=== PATIENT | male | born 2005 | race Hispanic/Latino ===

== ENCOUNTER 2025-08-16 00:35 | Emergency (ER) | payer OTHER, SELFPAY ==
[2025-08-16 00:36] VITALS: BP 177/93
[2025-08-16 01:38] LABS: Hematocrit 43.4 % (39.0-52.0); Hemoglobin 13.9 g/dL (13.0-18.0); Mean Corp Hgb Conc. 32.0 g/dL (33.0-37.0); Mean Corpuscular Volume 83.1 fL (80.0-94.0); Nucleated Red Blood Cells % 0 % (-); Platelet Count 233 10^3/uL (130-400); Red Cell Dist. Width 13.0 % (11.5-14.5)
[2025-08-16 01:48] LABS: ALT (SGPT) 22 U/L (0-50); AST (SGOT) 23 U/L (17-59); Albumin 4.5 g/dl (3.5-5.0); Alkaline Phosphatase 111 U/L (38-126); Blood Urea Nitrogen 15 mg/dl (9-20); Calcium 9.1 mg/dl (8.4-10.2); Carbon Dioxide 25 mmol/L (22-30); Chloride 102 mmol/L (98-107); Glucose 111 mg/dl (70-99); Potassium 3.6 mmol/L (3.5-5.1); Sodium 136 mmol/L (135-145); Total Protein 7.6 g/dl (6.3-8.2); eGFR > 60.00
[2025-08-16] MEDS: TORADOL 30 MG IV (02:28)
--- NOTE | 2025-08-16 02:40 | ED.GENMED ---
History of Present Illness
General
Chief Complaint: Chest Pain
Source: patient
Exam Limitations: none
Time Seen by Provider: 08/16/25 01:35
Nursing documentation reviewed up to this point in time: agreed with
History of Present Illness
History of Present Illness:
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
nondrinker non-smoker
Past History
Past History
ED Past Medical History: None
ED Past Surgical History: None
Social History
Tobacco: Non-smoker
Alcohol: None
Drug: None
Personal: Single
Living: with family
Employment: Employed
Family History
Family History: Negative CAD or Sudden
Review of Systems
Review of Systems
All Other Systems: Not applicable
Phy Exam
Physical Exam
Physical Exam:
Physical Exam
General: no apparent distress, not acutely ill
Neck: No jaundice
Heart: s1/s2 regular rate and rhythm, no murmur. equal radial pulses.
Lungs: no acute respiratory distress. clear bilaterally
Abdomen: Nontender
Neuro: alert and oriented. no focal neurological deficits
Skin: no rash
Psychiatric: well kept. interactive and cooperative
Extremities: no edema. no calf tenderness
Scores
Heart Score for Chest Pain Patients
STEMI patient?: No
History: Slightly or Non-Suspicious
ECG: Normal
Age: </= 45 years
Risk Factors: No Risk Factors
Troponin: </= Normal Limit
Heart Score for Chest Pain Patients: 0
Heart Score Risk: 2.5% MACE over next 6 weeks
Course
Orders/Labs/Results
Orders:
Orders
08/16/25 00:38
EKG [Electrocardiogram (*1)] Urgent
Reason for Study: Chest Pain
EKG- Treatment ONCE
08/16/25 01:24
Cardiac Monitoring- Treatment ONCE
IV Insert/Care/Rem.- Treatment PRN
O2 Therapy [RESP] Urgent
Titrate/Wean O2 to maintain O2 sat greater than (%): 90
Special Instructions: Maintain sats >/=90%
Pulse Ox/spot Check [RESP] Urgent
Quantity: 1
Special Instructions: ON ROOM AIR
08/16/25 01:26
Complete Blood Count/With Diff Urgent
Comprehensive Metabolic Panel Urgent
08/16/25 02:02
Ketorolac [Toradol] 30 mg IV NOW STA
08/16/25 02:03
CR Chest - 2 Views Urgent
Comment:
Reason For Exam: cp
08/16/25 02:31
Troponin I Urgent
Abnormal Lab Results
08/16/25
01:26
MCH 26.6 L pg
(27.0-31.0)
MCHC 32.0 L g/dL
(33.0-37.0)
Absolute Lymphs (auto) 3.6 H 10^3/uL
(1.2-3.4)
Absolute Monos (auto) 0.9 H 10^3/uL
(0.1-0.6)
Eosinophils % 6.2 H %
(0-6)
Glucose 111 H mg/dl
(70-99)
08/16/25 01:26
08/16/25 01:26
Vital Signs
Initial and Last Documented VS:
Initial Vital Signs
Temp Pulse Resp BP Pulse Ox
97.8 F 94 20 177/93 99
08/16/25 00:36 08/16/25 00:36 08/16/25 00:36 08/16/25 00:36 08/16/25 00:36
Last Documented Vital Signs
Temp Pulse Resp BP Pulse Ox
97.8 F 94 20 177/93 99
08/16/25 00:36 08/16/25 00:36 08/16/25 00:36 08/16/25 00:36 08/16/25 02:41
MDM/Problems Addressed
Differential Diagnosis Includes:
GERD palpitations, ACS less likely ME less likely PE unlikely pneumothorax unlikely by history of
MDM/Problems Addressed:
Chest pain palpitation
*Pulse Oximetry
SaO2: 99
Oxygen Mode of Delivery: Room air
Patient hypoxic: no
*Critical Care Note
Total Time (30-74mins, 75-104mins- exclusive of procedures): Not Applicable
ED Attending Note
-
Portions of this chart may have been created with voice recognition software.� Occasional wrong word or��sound alike� substitutions may have occurred due to the inherent limitations of voice recognition software.
Discharge Plan
Departure
Patient Disposition: Home (Routine Discharge)
Date of Disposition: 08/16/25
Time of Disposition: 03:30
Patient with high blood pressure during this ER visit?: No
Condition: Good
Discharge Problem:
Chest pain
Instructions: Costochondritis (DC)
Prescriptions:
No Action
pantoprazole 40 MG tablet,delayed release (DR/EC)
40 mg PO DAILY Qty: 30 0RF
ibuprofen 200 MG tablet
400 mg PO Q6HPRN PRN (Reason: pain) Qty: 30 0RF
Referrals:
Ector Simon MD [Family Provider, Pediatrics] - Next open appointment
Activity Restrictions/Additional Instructions:
Tylenol or ibuprofen for pain
Interventions
Interventions:
*General Assessment Last Done: 08/16/25 00:36
*Neglect/Abuse Screening Last Done: 08/16/25 00:36
*Risk Screen - Suicide (C-SSRS) Last Done: 08/16/25 00:36
Discharge Date and Time
Print Language: [place]
[2025-08-16 03:27] LABS: Troponin I < 0.012 ng/ml
[2025-08-16 04:29] VITALS: BP 117/64
== END 2025-08-16 04:39 | disposition home or self-care (01) ==
LOC: EMR 00:35
PROVIDERS: EMERGENCY PHYSICIAN Emergency Medicine; FAMILY PHYSICIAN Pediatrics
DX: R07.9 Chest pain, unspecified (principal)
CPT/HCPCS: 99284; 96374; 71046; 80053; 84484; 85025; 93005